=== PATIENT | female | born 1970 | race Caucasian/White ===

== ENCOUNTER 2021-06-28 13:04 | Inpatient (IN) ==
[2021-06-28 14:58] LABS: Basophils # 0.1 K/mcL (0.0-0.2); Basophils % 0.8 %; Eosinophils # 0.1 K/mcL (0.0-0.6); Eosinophils % 1.2 %; Hematocrit 41.1 % (35.3-44.9); Hemoglobin 14.2 g/dL (11.5-15.4); Immature Granulocytes % 0.1 % (0-4); Lymphocytes # 1.9 K/mcL (0.6-4.6); Lymphocytes % 24.6 %; Mean Corpuscular HGB Conc 34.5 g/dL (31.6-35.5); Mean Corpuscular Hemoglobin 30.6 pg (28.0-33.3); Mean Corpuscular Volume 88.6 fL (83.0-100.0); Mean Platelet Volume 9.4 fL (9.4-12.4); Monocytes # 0.6 K/mcL (0.0-1.3); Monocytes % 8.1 %; Platelet Count 340 K/mcL (140-400); Red Blood Count 4.64 M/mcL (3.82-4.97); Red Cell Distribution Width 12.5 % (11.5-14.5); Segmented Neutrophils % 65.2 %; White Blood Count 7.7 K/mcL (4.3-11.1)
[2021-06-28 15:01] LABS: Acetaminophen < 10 mcg/mL (10-20); BUN/Creatinine Ratio 17 (6-26); Blood Urea Nitrogen 15 mg/dL (6-20); Calcium 9.9 mg/dL (8.6-10.3); Carbon Dioxide 26 mEq/L (23-29); Chloride 103 mEq/L (98-107); Ethanol < 10 mg/dL (Less than 10); Glucose 105 mg/dL (70-105); Osmolality,Calculated 285 (280-300); Potassium 4.1 mEq/L (3.5-5.1); Salicylate < 2.5 mg/dL (15.0-30.0); Sodium 137 mEq/L (136-145); eGFR For African Americans > 60 (> 60); eGFR For Non-African Americans > 60 (> 60)
[2021-06-28 15:03] LABS: Amphetamine Screen,Urine Negative ng/mL (Cutoff=1000); Barbiturate Screen,Urine Negative ng/mL (Cutoff=200); Benzodiazepines Screen,Urine Negative ng/mL (Cutoff=200); Cannabinoid Screen,Urine Negative ng/mL (Cutoff = 50); Cocaine Screen,Urine Negative ng/mL (Cutoff= 300); Opiate Screen,Urine Negative ng/mL (Cutoff=300); Phencyclidine Screen,Urine Negative ng/mL (Cutoff=25)
[2021-06-28 15:27] LABS: Bilirubin,Urine Negative (Negative); Blood,Urine Negative (Negative); Clarity,Urine Clear (Clear); Color,Urine Yellow (Yellow); Glucose,Urine (UA) Normal (Normal); Ketones,Urine Negative (Negative); Leukocyte Esterase,Urine Small (Negative); Mucus,Urine Few per lpf (None-Few); Nitrite,Urine Positive (Negative); PH,Urine 5.5 pH Units (5.0-8.0); Protein,Urine Negative (Neg-Trace); RBC,Urine 0-3 per hpf (0-3); Renal Epithelial Cells,Urine Few per hpf (None-Few); Specific Gravity,Urine 1.016 (1.010-1.025); Squamous Epithelial Cell,Urine Few per hpf (None-Few); Transitional Epi Cells,Urine Few per hpf (None-Few); Urobilinogen,Urine Normal (Normal); WBC,Urine 15-30 per hpf (0-3)
[2021-06-28 18:23] LABS: Influenza A PCR Negative (Negative); Influenza B PCR Negative (Negative); Resp. Syncytial Virus PCR Negative (Negative)
[2021-06-28 18:28] LABS: SARS-CoV-2 by PCR (In House) Negative (Negative)
[2021-06-28] MEDS ORDERED: haloperidoL 5 MG TABLET PO PRN (18:47)
[2021-06-28] MEDS ORDERED: hydrOXYzine pamoate 25 MG CAPSULE PO PRN (18:47)
[2021-06-28] MEDS ORDERED: *HR* LORazepam 2 MG/ML VIAL IM PRN (18:47)
[2021-06-28] MEDS ORDERED: Acetaminophen 325 MG TABLET PO PRN (18:47)
[2021-06-28] MEDS ORDERED: *HR* LORazepam 1 MG TABLET PO PRN (18:47)
[2021-06-28] MEDS ORDERED: Haloperidol Lactate 5 MG/ML VIAL IM PRN (18:47)
[2021-06-28] MEDS ORDERED: SUMAtriptan succinate 50 MG TABLET PO PRN (18:48)
[2021-06-29] MEDS: traZODone 50 MG TABLET PO PRN ×2 (00:49→20:29)
[2021-06-29] MEDS: Vitamin E 200 UNIT (90MG) CAPSULE PO SCH (09:00)
[2021-06-29] MEDS ORDERED: NON-FORMULARY MEDICATION 1 EACH EACH (Biotin 5 MG Tablet) PO SCH (09:00)
[2021-06-29] MEDS ORDERED: Mag Hydrox/Al Hydrox/Simeth 30 ML UDC PO PRN (11:02)
[2021-06-29] MEDS ORDERED: MOM Conc 10 ML UD.LIQ PO PRN (11:02)
[2021-06-30] MEDS: Vitamin E 200 UNIT (90MG) CAPSULE PO SCH (09:00)
[2021-06-30] MEDS ORDERED: FLU Vac QV 21-22 (6Month+)/PF 0.5 ML SYRINGE IM ONE (09:04)
[2021-06-30 09:19] VITALS: BP 139/88; PULSE 82; TEMP 97.8; O2SAT 96
== END 2021-06-30 13:15 | disposition home or self-care (01) | DRG 885 ==
LOC: EMEROOARM 13:04 → 1ANU 18:50
PROVIDERS: ADMIT Psychiatry & Neurology Psychiatry; ATTEND Psychiatry & Neurology Psychiatry